=== PATIENT | female | born 1965 | race African-American/Black ===

== ENCOUNTER 2019-01-01 07:43 | Emergency (ER) | payer MEDICARE, MEDICAID ==
[~2019-01-01] VITALS: Ht 167.6 cm; Wt 70.0 kg
[~2019-01-01 07:43] MED LIST: BENA40TA56 PO; DIAZ10TA4 PO; DOCU-144 PO; FOLI-49 PO; HYDR-3612 PO; ISOS60TA PO; METH500T PO; NIFE60TA18 PO; SVL800C PO; THIA100T10 PO; TRAM50TA2 PO
[2019-01-01 07:48] VITALS: Ht 167.6 cm; Wt 70.0 kg
[2019-01-01] MEDS ORDERED: ALBUTEROL 0.083% (NEB) 2.5 MG/3 ML AMP HHN STA (08:11)
[2019-01-01] MEDS ORDERED: predniSONE 20 MG TAB PO ONE (08:30)
[2019-01-01] MEDS ORDERED: IPRATROPIUM (NEB) 0.5 MG/2.5 ML AMP HHN ONE (08:30)
[2019-01-01] MEDS ORDERED: LEVOFLOXACIN 750 MG TABLET PO ONE (08:30)
[2019-01-01] MEDS ORDERED: HYDR-3605 ORAL (09:33)
[2019-01-01] MEDS ORDERED: LEVO750T25 PO (09:45)
[2019-01-01] MEDS ORDERED: ALBU18HF INHALATION (09:45)
[2019-01-01 09:48] VITALS: BP 152/81; PULSE 88; RESP 20
--- NOTE | 2019-01-01 11:48 | ERD ---
ER Documentation Chief Complaint Chief Complaint Complains of SOB HX of Dialysis HPI Patient is a 53-year-old female with dialysis and sarcoid who presents with a "cold". She said that she has had a cold for the past 3-4 months. She was on a Z-Johny last week but still has a cough and shortness of breath. The cough is productive of phlegm. She was worse this week. She has no fevers. She did receive her last dialysis on Tuesday but usually gets on Mondays and Fridays. She is due for dialysis today at a.m. Upon review of old medical records this is the patient's fourth visit to the ER since 2013. ROS All systems reviewed and are negative except as per history of present illness. Medications Home Meds Active Scripts Albuterol Sulfate* (Ventolin HFA*) 18 Gm Hfa.aer.ad, 2 PUFF INHALATION Q4H, #1 INHALER Prov:EVERETT GARCIA MD 01/01/19 Levofloxacin* (Levaquin*) 750 Mg Tablet, 750 MG PO DAILY for 4 Days, TAB Prov:EVERETT GARCIA MD 01/01/19 Reported Medications Hydrocodone/Acetaminophen (Hydrocodon-Acetaminoph 7.5-325) 1 Each Tablet, 1 TAB ORAL Q6 for PAIN 01/01/19 Docusate Sodium* (Colace*) 100 Mg Capsule, 100 MG PO BID, CAP 01/13/15 Sevelamer Hcl* (Renagel*) 800 Mg Tablet, 1600 MG PO WITH MEALS, TAB 04/20/14 Benazepril Hcl* (Benazepril Hcl*) 40 Mg Tablet, 40 MG PO DAILY, TAB 04/20/14 Isosorbide Mononitrate* (Isosorbide Mononitrate*) 60 Mg Tab.er.24h, 60 MG PO DAILY, TAB 04/20/14 Diazepam* (Diazepam*) 10 Mg Tablet, 10 MG PO BID PRN for prn, TAB 04/20/14 Nifedipine* (Nifedipine ER*) 60 Mg Tablet.sa, 60 MG PO DAILY, TAB.SA 04/20/14 Folic Acid* (Folic Acid*) 1 Mg Tablet, 1 MG PO DAILY, TAB 04/20/14 Discontinued Reported Medications Thiamine* (Thiamine*) 100 Mg Tablet, 100 MG PO DAILY, TAB 04/20/14 Tramadol HCl (Tramadol HCl) 50 Mg Tab, 50 MG PO BID, TAB 04/20/14 Hydrocodone Bit-Acetaminophen* ([place]*) 10-325 Tablet, 1 TAB PO Q4H PRN for PAIN, TAB 04/20/14 Discontinued Scripts Methocarbamol* (Robaxin*) 500 Mg Tab, 500 MG PO Q8, #10 TAB Will cause drowsiness. No driving. Fall risk so be very careful. Preferably take before bed Prov:MARY WINKLER DO 01/02/16 Allergies Allergies: Coded Allergies: No Known Allergy (Unverified , 01/01/19) PMhx/Soc History of Surgery: Yes (SHUNT RT UE ,CHOLECYSTECTOMY) Anesthesia Reaction: No Hx Neurological Disorder: No Hx Respiratory Disorders: No Hx Cardiac Disorders: Yes (CHF, HTN) Hx Psychiatric Problems: No Hx Miscellaneous Medical Probl: Yes (ESRD) Hx Alcohol Use: No Hx Substance Use: No Hx Tobacco Use: Yes Smoking Status: Current every day smoker FmHx Family History: diabetes Physical Exam Vitals Vital Signs Date Temp Pulse Resp B/P (MAP) Pulse Ox O2 O2 Flow FiO2 Time Delivery Rate 01/01/19 98.1 88 20 152/81 97 Room Air 09:48 (104) 01/01/19 72 20 97 21 08:33 01/01/19 98.9 72 20 157/87 98 07:48 (110) Physical Exam Const: No acute distress Head: Atraumatic Eyes: Normal Conjunctiva ENT: Normal External Ears, Nose and Mouth. Neck: Full range of motion. No meningismus. Resp: Clear to auscultation bilaterally Cardio: Regular rate and rhythm, no murmurs Abd: Soft, non tender, non distended. Normal bowel sounds Skin: No petechiae or rashes Back: No midline or flank tenderness Ext: No cyanosis, or edema Neur: Awake and alert Psych: Normal Mood and Affect Results 24 hrs Current Medications Medications Dose Sig/Blair Start Time Status Last (Trade) Ordered Route PRN Stop Time Admin Dose Reason Admin 750 mg ONCE ONCE 01/01/19 DC 01/01/19 Levofloxacin PO 08:30 08:42 (Levaquin) 01/01/19 08:31 Prednisone 60 mg ONCE ONCE 01/01/19 DC 01/01/19 (Prednisone) PO 08:30 08:16 01/01/19 08:31 Albuterol 5 mg ONCE STAT 01/01/19 DC 01/01/19 (Proventil HHN 08:11 08:33 0.083% (Neb)) 01/01/19 08:12 Ipratropium 0.5 mg ONCE ONCE 01/01/19 DC 01/01/19 [place] [facility] 08:30 08:33 (Atrovent 01/01/19 08:31 0.02% (Neb)) Procedures/MDM Smoking Cessation Therapy: Pt. was lectured for greater than 3 minutes on the health risks of continued smoking and the benefits of cessation. Chest x-ray shows right lower lobe pneumonia per radiology. EKG read by me: Rate/Rhythm: Regular rate and rhythm at a normal rate Intervals: Normal Impression: No evidence of ischemia or arrhythmia Patient is a 53-year-old female who presents with right lower lobe pneumonia seen on chest x-ray. The patient is otherwise well-appearing and I do not be lieve she requires further workup or admission to the hospital at this time. The patient was given Levaquin as she is Tommy been on Zithromax. The patient will be given 4 more days of Levaquin and a Ventolin inhaler. She can return for any worsening symptoms. Departure Diagnosis: Primary Impression: PNA (pneumonia) Pneumonia type: due to unspecified organism Laterality: right Lung location: lower lobe of lung Qualified Codes: J18.1 - Lobar pneumonia, unspecified organism Additional Impression: Shortness of breath Condition: Fair Patient Instructions: Pneumonia (Adult) Referrals: Your doctor Additional Instructions: Call your primary care doctor TOMORROW for an appointment during the next 1-2 days.See the doctor sooner or return here if your condition worsens before your appointment time. EVERETT GARCIA MD Jan 01, 2019 11:48
== END 2019-01-01 09:50 | disposition home or self-care (01) ==
LOC: E/R 07:43
DX: J18.1 Lobar pneumonia, unspecified organism (principal); I12.0 Hypertensive chronic kidney disease with stage 5 chronic kidney disease or end stage renal disease; N18.6 End stage renal disease; I50.9 Heart failure, unspecified; F17.210 Nicotine dependence, cigarettes, uncomplicated; Z99.2 Dependence on renal dialysis
CPT/HCPCS: 71045; 93005; 94664; 99284; J7512